=== PATIENT | male | born 1970 | race Caucasian/White ===

== ENCOUNTER 2020-01-16 14:22 | Emergency (ER) | payer OTHER ==
[~2020-01-16] VITALS: Ht 190.5 cm; Wt 106.6 kg
[2020-01-16] MEDS ORDERED: ACETAMINOPHEN 500 MG TAB PO ONE (17:00)
[2020-01-16 17:30] VITALS: BP 140/90
== END 2020-01-16 18:21 | disposition home or self-care (01) ==
LOC: ER 14:22
DX: S42.022A Displaced fracture of shaft of left clavicle, initial encounter for closed fracture (principal); S43.102A Unspecified dislocation of left acromioclavicular joint, initial encounter; X58.XXXA Exposure to other specified factors, initial encounter; Y93.89 Activity, other specified; Y92.89 Other specified places as the place of occurrence of the external cause; Y99.8 Other external cause status
CPT/HCPCS: 73200

== ENCOUNTER 2022-02-24 19:58 | Emergency (ER) | payer OTHER ==
[~2022-02-24] VITALS: Ht 182.9 cm; Wt 109.1 kg
[2022-02-24] MEDS ORDERED: EPINEPHrine HCL 1 MG/1 ML AMP IM ONE (20:15)
[2022-02-24] MEDS ORDERED: SODIUM CHLORIDE 0.9% 1,000 ML IV ONE (20:15)
[2022-02-24] MEDS ORDERED: FAMOTIDINE (10MG/ML) 2ML VL IV ONE (20:15)
[2022-02-24] MEDS ORDERED: DexAMETHasone SOD PHOS 10MG/1ML VIAL INJ IV ONE (20:15)
[2022-02-24] MEDS ORDERED: diphenhdrAMINE HCL 50 MG/1 ML VL IV ONE (20:15)
[2022-02-24] MEDS ORDERED: DEXA6TAB6 PO (22:36)
[2022-02-24 22:46] VITALS: BP 132/85
== END 2022-02-24 22:49 | disposition home or self-care (01) ==
LOC: ER 20:01
DX: T78.40XA Allergy, unspecified, initial encounter (principal); I10 Essential (primary) hypertension; Y92.89 Other specified places as the place of occurrence of the external cause
CPT/HCPCS: 96361; 96372; 96374; 96375; 99284; J0171; J1100; J1200; J3490; J7030

== ENCOUNTER 2022-06-23 07:18 | Emergency (ER) | payer OTHER ==
[~2022-06-23] VITALS: Ht 190.5 cm; Wt 122.0 kg
[~2022-06-23 07:18] MED LIST: DEXA6TAB6 PO
[2022-06-23 08:04] LABS: Basophils # (auto) 0 10 ^3/uL (0-0.2); Basophils % (auto) 0.5 % (0.0-2.0); Eosinophils # (auto) 0.1 10 ^3/uL (0-0.8); Hematocrit 42.7 % (41.0-53.0); Lymphocytes # (auto) 1.9 10 ^3/uL (0.4-5.4); Lymphocytes % (auto) 20.8 % (10.0-50.0); Mean Corpuscular Hemoglobin 31.2 pg (28.0-32.0); Mean Corpuscular Hgb Conc. 35.1 g/dL (32.0-36.0); Mean Corpuscular Volume 88.9 fL (80.0-100.0); Monocytes # (auto) 0.6 10 ^3/uL (0-1.3); Neutrophils # (auto) 6.4 10 ^3/uL (1.6-8.6); Neutrophils % (auto) 70.7 % (37.0-80.0); Red Cell Distribution Width 13.1 % (11.8-14.3); White Blood Cell 9.1 10^3/uL (4.4-10.8)
[2022-06-23 08:19] LABS: Calcium 8.6 mg/dL (8.5-10.1); Potassium 4.2 mmol/L (3.5-5.1)
[2022-06-23 08:23] LABS: Bilirubin, Total 0.7 mg/dL (0.2-1.0); Total Protein 6.5 g/dL (6.4-8.2)
[2022-06-23 09:33] VITALS: BP 139/85
== END 2022-06-23 09:03 | disposition home or self-care (01) ==
LOC: ER 07:18
DX: R55 Syncope and collapse (principal); I10 Essential (primary) hypertension; Z98.890 Other specified postprocedural states
CPT/HCPCS: 36415; 70450; 80053; 82962; 84484; 85025; 93005

== ENCOUNTER 2024-11-06 18:44 | Emergency (ER) | payer OTHER ==
[~2024-11-06] VITALS: Ht 190.5 cm; Wt 118.8 kg
[2024-11-06] MEDS: methylPREDNISolone SOD SUCC 125 MG/2 ML VL IV ONE (18:59)
[2024-11-06] MEDS: diphenhdrAMINE HCL 50 MG/1 ML VL IV ONE (18:59)
[2024-11-06] MEDS: FAMOTIDINE (10MG/ML) 2ML VL IV ONE (19:01)
--- NOTE | 2024-11-06 19:01 | ED.PDOC ---
HPI Allergic reaction HPI Comments 54-year-old male who came to ER for allergic reaction. Patient history of allergy to peanuts. States 30 minutes ago he developed sudden onset generalized pruritic maculopapular rashes. Patient's self-medicated with an EpiPen but offered no relief. Denies any shortness of breath or wheezing or throat swelling. Chief Complaint: Allergic Reaction Time Seen by MD: 19:01 Reviewed Notes: Nurses Notes Allergies: Coded Allergies: NO KNOWN ALLERGIES (Unverified , 01/16/20) Home Meds Active Scripts Dexamethasone (Decadron) 6 Mg Tab, 6 MG PO DAILY for 6 Days, #6 TAB 0 Refills Prov:DAVID ORO MD 02/24/22 Information Source: Patient Mode of Arrival: Ambulatory Severity: Moderate Rash: Moderate SOB: None Difficulty swallowing: None Pruritus: Moderate Timing: Minutes Duration: Since onset Prehospital treatment: Treatment (EpiPen) Location: Generalized Exposed to: Unknown Developed: Pruritus, Rash History of: Prior Similar Episodes Modyifying Factors: None Associated Sign and Symptoms: None Past Medical History PAST MEDICAL HISTORY: HTN Surgical History: Hernia Repair Family History Family History: Reviewed,noncontributory to illness Social History Smoker: Non-Smoker Alcohol: Denies ETOH Use Drugs: Denies Drug Use Lives In: Home Constitutional: denies: chills, diaphoresis, fatigue, fever, malaise, sweats, weakness, others EENTM: denies: blurred vision, double vision, ear bleeding, ear discharge, ear drainage, ear pain, ear ringing, eye pain, eye redness, hearing loss, mouth pain, mouth swelling, nasal discharge, nose bleeding, nose congestion, nose pain, photophobia, tearing, throat pain, throat swelling, voice changes, others Respiratory: denies: cough, hemoptysis, orthopnea, SOB at rest, shortness of breath, SOB with excertion, stridor, wheezing, others Cardiovascular: denies: chest pain, dizzy spells, diaphoresis, Dyspnea on exertion, edema, irregular heart beat, left arm pain, lightheadedness, palpitations, PND, syncope, others Gastrointestinal: denies: abdomen distended, abdominal pain, blood streaked bowels, constipated, diarrhea, dysphagia, difficulty swallowing, hematemesis, melena, nausea, poor appetite, poor fluid intake, rectal bleeding, rectal pain, vomiting, others Genitourinary: denies: burning, dysuria, flank pain, frequency, hematuria, incontinence, penile discharge, penile sore, pain, testicle pain, testicle swelling, urgency, others Neurological: denies: dizziness, fainting, headache, left sided numbness, left sided weakness, numbness, paresthesia, pre-existing deficit, right sided numbness, right sided weakness, seizure, speech problems, tingling, tremors, weakness, others Musculoskeletal: denies: back pain, gout, joint pain, joint swelling, muscle pain, muscle stiffness, neck pain, others Integumetry: reports: rash; denies: bruises, change in color, change in hair/nails, dryness, laceration, lesions, lumps, wounds, others Allergic/Immunocompromised: reports: Hives, Itching; denies: Difficulty Healing, Frequent Infections, others Hematologic/Lymphatic: denies: anemia, blood clots, easy bleeding, easy bruising, swollen glands, others Endocrine: denies: excessive hunger, excessive sweating, excessive thirst, excessive urination, flushing, intolerance to cold, intolerance to heat, unexplained weight gain, unexplained weight loss, others Psychiatric: denies: anxiety, bipolar disorder, depression, hopeless, panic d isorder, schizophrenia, sleepless, suicidal, others Physical Exam General Appearance: Moderate Distress, Normal HEENT: Normal ENT Inspection, Pharynx Normal, TMs Normal Neck: Full Range of Motion, Non-Tender, Normal, Normal Inspection Respiratory: Chest Non-Tender, Lungs Clear, No Accessory Muscle Use, No Respiratory Distress, Normal Breath Sounds Cardiovascular: No Edema, No JVD, No Murmur, No Gallop, Normal Peripheral Pulses, Regular Rate/Rhythm Breast Exam: Deferred Gastrointestinal: No Organomegaly, Non Tender, No Pulsatile Mass, Normal Bowel Sounds, Soft Genitalia: Deferred Pelvic: Deferred Rectal: Deferred Extremities: No calf tenderness, Normal capillary refill, Normal inspection, Normal range of motion, Non-tender, No pedal edema Musculoskeletal : Apperance: Normal Neurologic: Alert, steward/stewardess lounge II-XII nml as Tested, No Motor Deficits, Normal Affect, Normal Mood, No Sensory Deficits Cerebellar Function: Normal Reflexes: Normal Skin: Normal Color, Rash, Warm Lymphatic: No Adenopathy Was a procedure done? Was a procedure done?: No Differential diagnosis (all) Differential Diagnosis: Anaphylaxis, Angioedema, Bronchospasm, Contact Dermatitis, Drug Reaction, Respiratory Failure, Urticaria X-Ray, Labs, Meds, VS Vital Signs Date Time Temp Pulse Resp B/P (MAP) Pulse Ox O2 Delivery O2 Flow Rate FiO2 11/06/24 19:10 97.4 82 20 140/86 (104) 97 97.4 11/06/24 18:46 97.5 99 30 127/76 96 97.5 Current Medications Medications (Trade) Dose Ordered Sig/Christine Route Start Time Stop Time Status Last Admin Epinephrine HCl 0.3 mg ONCE ONCE IM 11/06/24 19:00 11/06/24 19:01 DC 11/06/24 19:02 Methylprednisolone Sodium Succinate (Solu Medrol) 125 mg ONCE ONCE IV 11/06/24 19:00 11/06/24 19:01 DC 11/06/24 18:59 Diphenhydramine HCl (Benadryl Injection) 50 mg ONCE ONCE IV 11/06/24 19:00 11/06/24 19:01 DC 11/06/24 18:59 Famotidine (Pepcid Injection) 20 mg ONCE ONCE IV 11/06/24 19:00 11/06/24 19:01 DC 11/06/24 19:01 Time of 1ST Reevaluation: 18:59 Reevaluation 1ST: Unchanged Time of 2ND Reevaluation: 20:34 Reevaluation 2ND: Resolved Patient Education/Counseling: Diagnosis, Treatment, Prognosis, Need For Follow Up Family Education/Counseling: No Family Present Comments Patient has a history of allergy to peanuts. This time he has a [place] food but is unsure whether there was peanuts in the content. Patient started having swelling of entire body with itching but no shortness of breath no sore throat no trouble breathing. Patient took his own EpiPen which was by more than two years. Without any response. Here we gave the patient another dose of epi 0.3 mg of the one 1000 concentration and he also received IV Solu-Medrol, Benadryl, and Pepcid. Currently his symptoms are completely resolved. Patient is eager to go home. I will prescribe him Benadryl, prednisone, Pepcid, and renew his EpiPen. SEPSIS Sepsis Screen Date sepsis recognized/suspect: Nov 06, 2024 Time Sepsis recognized/suspect: 1848 Recent Procedure: No On Antibiotic Therapy: No Respiratory Rate >20: Yes Heart Rate >90: Yes Temp<36 C (96.8 F) or >38.3 C: No SBP <90 or MAP <65 mmHG: No New Acute Mental Status Change: No Is the patient on CPAP, BIPAP,: No Vital Signs Date Time Temp Pulse Resp B/P (MAP) Pulse Ox O2 Delivery O2 Flow Rate FiO2 11/06/24 19:10 97.4 82 20 140/86 (104) 97 97.4 11/06/24 18:46 97.5 99 30 127/76 96 97.5 Medications Medications Dose Ordered Sig/Christine Route Start Time Stop Time Status Last Admin Dose Admin Diphenhydramine HCl 50 mg ONCE ONCE IV 11/06/24 19:00 11/06/24 19:01 DC 11/06/24 18:59 Epinephrine HCl 0.3 mg ONCE ONCE IM 11/06/24 19:00 11/06/24 19:01 DC 11/06/24 19:02 Famotidine 20 mg ONCE ONCE IV 11/06/24 19:00 11/06/24 19:01 DC 11/06/24 19:01 Methylprednisolone Sodium Succinate 125 mg ONCE ONCE IV 11/06/24 19:00 11/06/24 19:01 DC 11/06/24 18:59 Departure 1 Departure Time of Disposition: 20:36 Impression: Primary Impression: Allergic reaction Qualified Codes: T78.40XA - Allergy, unspecified, initial encounter Disposition: HOME / SELF CARE / HOMELESS Condition: Good e-Prescriptions Epinephrine (Anaphylaxis) (Auvi-Q) 0.1 Mg/0.1 Ml Inj 0.1 MG IJ O PRN for 1 Day, #1 INJ Prov: SILVIO MOREL MD 11/06/24 Famotidine (PEPCID TABLET) 20 Mg Tb 1 TAB PO BID for 3 Days, #6 TAB 5 Refills Prov: SILVIO MOREL MD 11/06/24 Prednisone (Prednisone) 20 Mg Tab 40 MG PO DAILY for 3 Days, #6 MG Prov: SILVIO MOREL MD 11/06/24 Diphenhydramine Hcl (Benadryl Allergy) 25 Mg Cap 25 MG PO Q4HPRN PRN for 2 Days, #10 CAP Prov: SILVIO MOREL MD 11/06/24 Discharged With: Self Critical Care Note Critical Care Time?: Yes (45 min-critical care time only) Critical care comment: Due to concerns for patients condition deteriorating, the care required my highest level of attention and readiness to intervene. I assessed the patient, reviewed the medical records, ordered the appropriate tests and treatments, then reassessed for results and responsiveness. I communicated with medical personnel and consultants and formulated a plan of care. Total critical care time excludes any procedures Stability Stability form required: No Heart Score Heart Score: Heart Score Response (Comments) Value History N/A 0 EKG N/A 0 Age N/A 0 Risk Factors N/A 0 Troponin N/A 0 Total 0 I personally scribed for SILVIO MOREL MD ([email or web address]) on 11/06/24 at 19:01. Electronically submitted by Peter Tinajero ([facility]). SILVIO MOREL MD Nov 06, 2024 19:01
[2024-11-06 20:35] VITALS: BP 137/82; PULSE 73; RESP 14; TEMP 97.6; O2SAT 99
[2024-11-06] MEDS ORDERED: EPIN0.1I11 IJ (20:41)
[2024-11-06] MEDS ORDERED: DIPH25CA66 PO (20:41)
[2024-11-06] MEDS ORDERED: FAMO20TA10 PO (20:41)
[2024-11-06] MEDS ORDERED: PRED20TA2 PO (20:41)
== END 2024-11-06 20:47 | disposition home or self-care (01) ==
LOC: ER 18:44
DX: T78.49XA Other allergy, initial encounter (principal); I10 Essential (primary) hypertension; Z91.010 Allergy to peanuts; Z98.890 Other specified postprocedural states; X58.XXXA Exposure to other specified factors, initial encounter
CPT/HCPCS: 96372; 96374; 96375; 99284; J0169; J1200; J2919; J3490